=== PATIENT | male | born 1985 | race Caucasian/White ===

== ENCOUNTER 2020-05-26 10:30 | Outpatient (REF) | payer OTHER, SELFPAY ==
[2020-05-26 12:44] LABS: MANUAL DIFF FLAG NO
[2020-05-26 12:46] LABS: Basophils Percent Auto 0.2 % (0-2); Eosinophils Absolute Auto 0.2 X10*3/uL (0.0-0.4); Eosinophils Percent Auto 3.8 % (0-4); Hematocrit 48.2 % (42-52); Hemoglobin 16.5 g/dl (14.0-18.0); Imm Gran Abs Auto 0.01 X10*3/uL (0.00-0.03); Imm Gran Pct Auto 0.2 % (0.0-0.4); Lymphocytes Absolute Auto 1.8 X10*3/uL (1.2-4.9); Lymphocytes Percent Auto 29.6 % (20-40); Mean Corpuscular HGB Conc 34.2 g/dl (31.0-36.0); Mean Corpuscular Hemoglobin 30.3 pg (27.0-33.0); Mean Corpuscular Volume 88.6 fL (80-98); Mean Platelet Volume 9.8 fL (9.4-12.4); Monocytes Absolute Auto 0.3 X10*3/uL (0.1-1.2); Monocytes Percent Auto 5.6 % (2-11); Neutrophils Absolute Auto 3.7 X10*3/uL (2.0-8.3); Neutrophils Percent Auto 60.6 % (45-73); Platelet Count 214 X10*3/uL (160-400); Red Blood Count 5.44 X10*6/uL (4.60-5.80); Red Cell Distribution Width 12.6 % (11.0-16.0); White Blood Count 6.1 X10*3/uL (4.8-10.8)
[2020-05-26 13:17] LABS: Alanine Aminotransferase 85 U/L (0-40); Albumin Level 4.6 g/dL (3.5-5.0); Alkaline Phosphatase 66 U/L (39-117); Anion Gap 12 (12-20); Aspartate Amino Transferase 55 U/L (5-37); Bilirubin Total 0.7 mg/dL (0.0-1.0); Blood Urea Nitrogen 10 mg/dL (9-16); Calcium 9.5 mg/dL (8.4-10.2); Carbon Dioxide 27 mmol/L (22-29); Chloride 104 mmol/L (96-108); Cholesterol 278 mg/dL; Estimated Glomerular Filt Rate > 60; Glucose Fasting 100 mg/dL (60-99); HDL Cholesterol 36 mg/dL; LDL Cholesterol Calculated 200 mg/dl; Potassium 4.2 mmol/l (3.3-5.1); Sodium 139 mmol/L (135-145); Total Protein 7.2 g/dL (6.5-8.0); Triglycerides 212 mg/dL
== END 2020-05-26 10:31 | disposition home or self-care (01) ==
LOC: HO.MANLDS 10:30
PROVIDERS: PCP Internal Medicine; Visit Provider Internal Medicine
DX: Z00.00 Encounter for general adult medical examination without abnormal findings (principal)
CPT/HCPCS: 36415; 80053; 80061; 85025

== ENCOUNTER 2020-10-05 08:30 | Outpatient (REF) | payer OTHER, SELFPAY ==
[2020-10-05 12:17] LABS: Alanine Aminotransferase 64 U/L (0-40); Alkaline Phosphatase 74 U/L (39-117); Anion Gap 12 (12-20); Aspartate Amino Transferase 36 U/L (5-37); Bilirubin Total 0.8 mg/dL (0.0-1.0); Blood Urea Nitrogen 12 mg/dL (9-16); Calcium 9.9 mg/dL (8.4-10.2); Carbon Dioxide 27 mmol/L (22-29); Chloride 105 mmol/L (96-108); Cholesterol 205 mg/dL; Estimated Glomerular Filt Rate > 60; Glucose Fasting 99 mg/dL (60-99); HDL Cholesterol 35 mg/dL; LDL Cholesterol Calculated 136 mg/dl; Potassium 4.2 mmol/L (3.3-5.1); Sodium 140 mmol/L (135-145); Total Protein 7.5 g/dL (6.5-8.0); Triglycerides 172 mg/dL
== END 2020-10-05 08:31 | disposition home or self-care (01) ==
LOC: HO.MANLDS 08:30
PROVIDERS: PCP Internal Medicine; Visit Provider Internal Medicine
DX: E78.00 Pure hypercholesterolemia, unspecified (principal)
CPT/HCPCS: 36415; 80053; 80061

== ENCOUNTER 2022-04-01 16:03 | Outpatient (REF) | payer OTHER, SELFPAY ==
[2022-04-01 17:37] LABS: MANUAL DIFF FLAG NO
[2022-04-01 17:40] LABS: Eosinophils Absolute Auto 0.1 X10*3/uL (0.0-0.4); Eosinophils Percent Auto 1.6 % (0-4); Hematocrit 41.5 % (42.0-52.0); Hemoglobin 14.5 g/dl (14.0-18.0); Imm Gran Abs Auto 0.01 X10*3/uL (0.00-0.03); Imm Gran Pct Auto 0.1 % (0.0-0.4); Lymphocytes Percent Auto 26.2 % (20-40); Mean Corpuscular HGB Conc 34.9 g/dl (31.0-36.0); Mean Corpuscular Hemoglobin 30.9 pg (27.0-33.0); Mean Corpuscular Volume 88.3 fL (80.0-98.0); Mean Platelet Volume 9.9 fL (9.4-12.4); Monocytes Absolute Auto 0.4 X10*3/uL (0.1-1.2); Monocytes Percent Auto 5.6 % (2-11); Neutrophils Percent Auto 66.5 % (45-73); Platelet Count 201 X10*3/uL (160-400); Red Cell Distribution Width 12.7 % (11.0-16.0); White Blood Count 7.5 X10*3/uL (4.8-10.8)
[2022-04-01 17:58] LABS: Alanine Aminotransferase 56 U/L (0-40); Albumin Level 5.1 g/dL (3.5-5.0); Alkaline Phosphatase 71 U/L (39-117); Anion Gap 18 (12-20); Aspartate Amino Transferase 40 U/L (5-37); Bilirubin Total 1.2 mg/dL (0.0-1.0); Blood Urea Nitrogen 10 mg/dL (9-16); Calcium 9.8 mg/dL (8.4-10.2); Carbon Dioxide 25 mmol/L (22-29); Chloride 103 mmol/L (96-108); Cholesterol 212 mg/dL; Estimated Glomerular Filt Rate > 60; Glucose Random 80 mg/dL (60-115); HDL Cholesterol 36 mg/dL; LDL Cholesterol Calculated 151 mg/dl; Potassium 3.7 mmol/L (3.3-5.1); Sodium 142 mmol/L (135-145); Total Protein 7.5 g/dL (6.5-8.0); Triglycerides 127 mg/dL
== END 2022-04-01 16:04 | disposition home or self-care (01) ==
LOC: HO.MANLDS 16:03
PROVIDERS: Visit Provider Internal Medicine
DX: E78.00 Pure hypercholesterolemia, unspecified (principal)
CPT/HCPCS: 36415; 80053; 80061; 85025

== ENCOUNTER 2024-03-01 09:24 | Outpatient (REF) | payer OTHER, SELFPAY ==
[2024-03-01 09:27] LABS: MANUAL DIFF FLAG NO
[2024-03-01 13:47] LABS: Basophils Percent Auto 0.2 % (0-2); Eosinophils Absolute Auto 0.1 X10*3/uL (0.0-0.4); Eosinophils Percent Auto 2.7 % (0-4); Hematocrit 47.9 % (42.0-52.0); Hemoglobin 16.8 g/dl (14.0-18.0); Imm Gran Abs Auto 0.02 X10*3/uL (0.00-0.03); Imm Gran Pct Auto 0.4 % (0.0-0.4); Lymphocytes Absolute Auto 1.4 X10*3/uL (1.2-4.9); Mean Corpuscular HGB Conc 35.1 g/dl (31.0-36.0); Mean Corpuscular Hemoglobin 31.1 pg (27.0-33.0); Mean Corpuscular Volume 88.7 fL (80.0-98.0); Monocytes Absolute Auto 0.3 X10*3/uL (0.1-1.2); Monocytes Percent Auto 6.2 % (2-11); Neutrophils Absolute Auto 3.2 x10*3/uL (2.0-8.3); Neutrophils Percent Auto 62.5 % (45-73); Platelet Count 192 X10*3/uL (160-400); Red Cell Distribution Width 13.3 % (11.0-16.0); White Blood Count 5.2 X10*3/uL (4.8-10.8)
[2024-03-01 14:00] LABS: Alanine Aminotransferase 93 U/L (0-40); Albumin Level 4.6 g/dL (3.5-5.0); Alkaline Phosphatase 67 U/L (39-117); Anion Gap 12 (12-20); Aspartate Amino Transferase 64 U/L (5-37); Bilirubin Total 0.8 mg/dL (0.0-1.0); Blood Urea Nitrogen 10 mg/dL (9-16); Carbon Dioxide 25 mmol/L (22-29); Chloride 107 mmol/L (96-108); Cholesterol 269 mg/dL (<200); Estimated Glomerular Filt Rate > 60; Glucose Random 112 mg/dL (60-115); HDL Cholesterol 36 mg/dL (>40); LDL Cholesterol Calculated 193 mg/dL (<100); Sodium 140 mmol/L (135-145); Total Protein 7.4 g/dL (6.5-8.0); Triglycerides 200 mg/dL (<150)
== END 2024-03-01 09:25 | disposition home or self-care (01) ==
LOC: HO.MANLDS 09:24
PROVIDERS: Visit Provider Internal Medicine
DX: I10 Essential (primary) hypertension (principal); E78.00 Pure hypercholesterolemia, unspecified
CPT/HCPCS: 36415; 80053; 80061; 85025

== ENCOUNTER 2024-12-24 14:43 | Outpatient (REF) | payer OTHER, SELFPAY ==
--- OUTSIDE RECORDS SUMMARY | 2024-12-24 15:53 | XMS_ITS | Clinical Summary ---
Author Organization [facility], Address [address] [place] [address] Phone Care Team Providers Care Housekeeping Assistant Name Role Phone Evangelist Palafox DO Primary Care Provider [phone] Allergies Active Allergy Reactions Criticality Noted Date Comments Lisinopril Palpitations Low 11/05/2019 Medications atorvastatin (LIPITOR) 10 MG tablet atorvastatin 10 mg tablet TAKE 1 TABLET BY MOUTH EVERY DAY Active triamterene-hyd roCHLOROthiazid e (DYAZIDE) 37.5-25 MG per capsule Take by mouth 1 (one) time each day 3 Active Active Problems Problem Noted Date Diagnosed Date Pain in lower limb 09/12/2022 Overview (09/12/2022): BILATERAL LEGS SINCE 2018/ RADIATING PAIN Hypercholesterolemia 04/20/2022 Hypertension 04/20/2022 Low back pain 04/20/2022 Primary hypercholesterolemia 05/31/2020 History of neoplasm 02/12/2020 Leiomyoma 01/23/2020 Pain in left foot 11/05/2019 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 Social History Tobacco Use Types Packs/Day Years Used Date Smoking Tobacco: Never Assessed Sex and Gender Information Value Date Recorded Sex Assigned at Not on file Legal Sex Male 11:45 AM EST Gender Identity Not on file Sexual Orientation Not on file Last Filed Vital Signs Vital Sign Reading Time Taken Comments Blood Pressure 146/101 09/13/2022 10:56 AM EDT Pulse 84 09/13/2022 10:56 AM EDT Temperature 36.3 C (97.3 F) 09/13/2022 10:56 AM EDT Respiratory Rate - - Oxygen Saturation 98% 09/13/2022 10:56 AM EDT Inhaled Oxygen Concentration - - Weight 97.5 kg (215 lb) 09/13/2022 10:56 AM EDT Height 175.3 cm (5' 9 ) 09/13/2022 10:56 AM EDT Body Mass Index 31.75 09/13/2022 10:56 AM EDT Plan of Treatment Health Maintenance Due Date Last Done Comments Hepatitis B Vaccine (1 of 3 - 19+ 3-dose series) 2003 Influenza Vaccine (#1) 2025 Pneumococcal Vaccine: Peds ( 0 to 5 Years) and At-Risk Patients (6 to 49 Years) Aged Out No longer eligible b ased on patient's age to complete this topic [place] [address] Care Teams Housekeeping Assistant Relationship Specialty Start Date End Date Evangelist Palafox DO [address] [place] [id number] PCP - General Internal Medicine 04/20/22
--- OUTSIDE RECORDS SUMMARY | 2024-12-24 15:53 | XMS_ITS | Clinical Summary ---
Author Organization [facility] Address [address] [place] [phone] Phone Care Team Providers Care Teletypewriter Operator Name Role Phone Evangelist Palafox Primary Care Provider [phone] Allergies Active Allergy Reactions Criticality Noted Date Comments Lisinopril Palpitations Low 11/05/2019 Losartan Palpitations Low 01/17/2023 Medications losartan (COZAAR) 25 MG tablet Take 25 mg by mouth daily. Active amLODIPine (NORVASC) 10 MG tablet Take 10 mg by mouth daily. Active triamterene-hyd roCHLOROthiazid e (DYAZIDE) 37.5-25 mg per capsule Take 1 capsule by mouth daily. 08/05/2022 Active atorvastatin (LIPITOR) 10 MG tablet Take 10 mg by mouth daily. 10/05/2022 Active atenolol (TENORMIN) 50 mg tablet Take 1.5 tablets by mouth every morning. 12/26/2022 Active gabapentin (NEURONTIN) 300 MG capsule Take 300 mg by mouth 2 (two) times a day. Active sulindac (CLINORIL) 150 MG tablet Take 150 mg by mouth 2 (two) times a day with meals. Active meclizine (ANTIVERT) 25 mg tablet Take 1 tablet (25 mg total) by mouth 3 (three) times a day as needed for dizziness. 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 Essential hypertension 11/05/2019 Encounters Date Type Department Care Team Description 12/17/2024 3:30 PM EDT Office Visit [facility] [address] [place] [address] Evangelist Jackson PA-C Johndrow, Jennifer, PT Acute pain of left shoulder (Primary Dx) 12/12/2024 3:30 PM EDT Office Visit [facility] [address] [place] [address] Evangelist Jackson PA-C Johndrow, Jennifer, PT Acute pain of left shoulder (Primary Dx) 12/05/2024 3:15 PM EDT Office Visit [address] [place] [address] Evangelist Jackson PA-C Swannie, Ward, SPEECH THERAPIST EARLY INTERVENTION Acute pain of left shoulder (Primary Dx) 11/26/2024 3:30 PM EDT Office Visit [address] [place] [address] Evangelist Jackson PA-C Johndrow, Jennifer, PT Acute pain of left shoulder (Primary Dx) 11/22/2024 3:00 PM EDT Office Visit [address] [place] [address] Evangelist Jackson PA-C Johndrow, Jennifer, PT Acute pain of left shoulder (Primary Dx) 11/19/2024 3:30 PM EDT Office Visit [facility] [address] [place] [address] Evangelist Jackson PA-C Johndrow, Jennifer, PT Acute pain of left shoulder (Primary Dx) 11/15/2024 3:45 PM EDT Office Visit [facility] [address] [place] [address] Evangelist Jackson PA-C Johndrow, Jennifer, PT Acute pain of left shoulder (Primary Dx) 10/30/2024 3:00 PM EDT Office Visit [facility] [address] [place] [phone] Jonelle Olsen MD Bursitis and tendinitis of shoulder region (Primary Dx) 09/26/2024 11:00 AM EDT Office Visit [facility] Medicine [address] [place] [phone] Evangelist Jackson PA-C Brachial neuritis of left upper extremity (Primary Dx) from Last 3 Months Immunizations Immunization Administration Dates Next Due COVID-19 (Pre-03/27) Pfizer Vaccine, mRNA, PF 06/18/2021,09/05/2020,08/13/2020 Social History Tobacco Use Types Packs/Day Years Used Date Smoking Tobacco: Never Smokeless Tobacco: Never Alcohol Use Standard Drinks/Week Comments Never 0 (1 standard drink = 0.6 oz pur e alcohol) Education Answer Date Recorded Are you interested in more education? Not on lis e 09/30/2022 Are you concerned about learning? Not on file 09/30/2022 No 09/30/2022 No 09/30/2022 Digital Access Answer Date Recorded No 10/28/2022 No 10/28/2022 Reliable internet access at home? Not on file 10/28/2022 Device with a working camera? Not on file Intimate Partner Violence Answer Date R ecorded Are you denied basic needs s uch as food, clothing, or medical care? No 08/09/2023 In the past 12 months have y ou been in a relationship with a person who hurts, threatens, or tries to control you? No 08/09/2023 Are you denied basic needs s uch as food, clothing, or medical care? No 08/09/2023 In the past 12 months have y ou been in a relationship with a person who hurts, threatens, or tries to control you? No 08/09/2023 Sex and Gender Information Value Date Recorded Sex Assigned at Male 08/09/2023 11:02 AM EST Legal Sex Male 9:15 PM EDT Gender Identity Male 08/09/2023 11:02 AM EST Sexual Orientation Straight 08/09/2023 11 :02 AM EST Last Filed Vital Signs Vital Sign Reading Time Taken Comments Blood Pressure 128/81 08/09/2023 7:29 PM EST Pulse 82 08/09/2023 7:29 PM EST Temperature 36.8 C (98.2 F) 08/09/2023 7:29 PM EST Respiratory Rate 14 08/09/2023 7:29 PM EST Oxygen Saturation 94% 08/09/2023 7:29 PM EST Inhaled Oxygen Concentration - - Weight 98 kg (216 lb) 08/09/2023 10:55 AM EST Height 175.3 cm (5' 9 ) 08/09/2023 10:55 AM EST Body Mass Index 31.9 08/09/2023 10:55 AM EST Plan of Treatment Upcoming Encounters Date Type Department Care Team (Late st Contact Info) Description 12/24/2024 5:00 PM EDT Office Visit [address] [address] Evangelist Palafox, DO [address] [place] [phone] Jennifer Owen, PT [address] [place] [address] 12/31/2024 5:00 PM EDT Office Visit [facility] [address] [place] [address] Evangelist Palafox, DO [address] [place] [address] Jennifer Owen, PT [address] [place] [address] 01/15/2025 4:00 PM EDT Office Visit [facility] Medicine [address] [place] [address] Jonelle Olsen MD [address] [place] [address] Orthopedics & Sports Medicine, [place] [address] Health Maintenance Due Date Last Done Comments BLOOD PRESSURE 1984 DEPRESSION SCREENING 1996 HEPATITIS C SCREENING 2002 HIV ONE-TIME SCREENING (18-6 5 YEARS) 2002 COVID-19 VACCINE (2023-2 5 season) 2024 06/18/2021, 09/05/2020, 08/13/2020 CREATININE LEVEL 08/02/2025 08/02/2024, 05/21/2024, 08/09/2023 POTASSIUM LEVEL 08/02/2025 08/02/2024, 05/21/2024, 08/09/2023 SCREENING FOR DIABETES 08/02/2027 08/02/2024 LIPID PANEL 08/02/2029 08/02/2024 Adult Td,Tdap Booster 06/18/2031 06/18/2021 SMOKING STATUS SCREENING (On ce After 26 Yrs) Completed 10/30/2024 HEPATITIS A VACCINES Aged Out No long er eligible based on patient's age to complete this topic HIB VACCINES Aged Out No longer eligi ble based on patient's age to complete this topic MENINGOCOCCAL VACCINES (ACWY) Aged Out No longer eligible based on patient's age to complete this topic MENINGOCOCCAL VACCINES (B) Aged Out N o longer eligible based on patient's age to complete this topic PNEUMOCOCCAL VACCINES (0-49 years) Aged Out No longer eligible b ased on patient's age to complete this topic Medical Devices Implanted Type Area Chief Service Dispatcher Device Identifier Shelf Expiration Date Model / Serial / Lot Cage Cage Back Description:2 cages and scre ws Procedures Procedure Name Priority Date/Time Associated Diagnosis Comments AMB REFERRAL TO [facility] PHYSICAL THERAPY Routine 11/16/2024 2:26 PM EDT Brachial neuritis of left upper extremity LIPID PANEL Routine 08/02/2024 10:39 AM EST Pure hypercholesterolemia Nonspecific elevation of levels of transaminase or lactic acid dehydrogenase (LDH) COMPREHENSIVE METABOLIC PANEL Routine 08/02/2024 10:39 AM EST Pure hypercholesterolemia Nonspecific elevation of levels of transaminase or lactic acid dehydrogenase (LDH) from Last 3 Months or Most Recently Relevant to Health Maintenance Results * Ambulatory referral to [facility] Physical Therapy (11/16/2024 2:26 PM EDT) Other us Evangelist Jackson PA-C [facility]B [facility] REFERRALS Final Res ult * (ABNORMAL) Comprehensive metabolic panel (08/02/2024 10:39 AM EST) SODIUM 140 133 - 146 mmol/L [facility] POTASSIUM 4.3 3.3 - 5.1 mmol/L [facility] CHLORIDE 104 96 - 108 mmol/L [facility] CO2 25 21 - 35 mmol/L [facility] BUN 9 6 - 19 mg/dL [facility] CREATININE 1.10 0.5 - 1.5 mg/dL [facility] GLUCOSE 114(H) 70 - 99 mg/dL [facility] ALBUMIN 4.5 3.9 - 4.8 g/dL [facility] TOTAL PROTEIN 7.6 6.5 - 8.0 g/dL [facility] CALCIUM 9.7 8.4 - 10.3 mg/dL [facility] ALKALINE PHOSPHATASE 79 39 - 117 U/L [facility] TOTAL BILIRUBIN 0.6 0.0 - 1.2 mg/dL [facility] AST 52(H) 0 - 37 U/L [facility] ALT 60(H) 0 - 40 U/L [facility] GLOBULIN 3.1 1 - 4.8 g/dL [facility] EGFR 87 >59 mL/min/1.7 3m2 [facility] Comment:Estimated glomerular filtration rate calculated using the CKD-EPI refit equation. ANION GAP 15 10 - 20 mmol/L [facility] Blood 08/02/2024 10:3 9 AM EST 08/02/2024 10:42 AM EST us Evangelist Palafox DO LAB BLOOD ORDERABLES Final Resul t [facility] [address] [place] [address] * (ABNORMAL) Lipid panel (08/02/2024 10:39 AM EST) HDL 38 mg/dL [facility] Comment: Interpretation <40 mg/dL: Low HDL cholesterol (major risk factor for CHD) Greater than or equal to 60 mg/dL: High HDL cholesterol ( negative risk factor for CHD) HDL - cholesterol is affected by a number of factors, e.g. smoking, excerise, hormones, sex and age. CHOLESTEROL 263(H) 0 - 240 mg/dL [facility] TRIGLYCERIDES 131 30 - 160 mg/dL [facility] LDL 199(H) 50 - 129 mg/dL [facility] Comment: LDL levels in terms of risk for coronary heart disease: <100 mg/dL: Optimal 100-129 mg/dL: Near or above optimal 130-159 mg/dL: Borderline high 160-189 mg/dL: High >190 mg/dL: Very High CARDIAC RISK RATIO 6.9(H) 3.4 - 5.0 [facility] Blood 08/02/2024 10:3 9 AM EST 08/02/2024 10:42 AM EST us Evangelist Palafox DO LAB BLOOD ORDERABLES Final Resul t [facility] [address] [place] [address] from Last 3 Months or Most Recently Relevant to Health Maintenance Insurance [employer] [facility] [place] [id number] [employer] [employer] [place] [address] [place] [address] [place] [address] [place] [address] [employer] [employer]YE[employer] FAMILY Care Teams Teletypewriter Operator Relationship Specialty Start Date End Date Evangelist Palafox DO [email or web address] PCP - General Internal Medicine 08/10/18 Additional Source Comments The information contained in this document represents components of the legal health record. It is not the complete legal health record.[facility]
--- OUTSIDE RECORDS SUMMARY | 2024-12-24 15:54 | XMS_ITS | Data Portability ---
Author Organization [facility] Internal [facility], Telehealth Patient Home Address [address] [place] [address] Assessment Encounter Date Assessment Date Assessment LastModified by Organization Details LastModified Time 03/05/2024 03/05/2024 [id number] [place] [id number] ([employer]) MDM MODERATE MUST MEET 2 OUT OF 3 ELEMENTS: PROBLEMS, DATA OR RISK ELEMENT 1: PROBLEMS ADDRESSED 1 OR MORE CHRONIC ILLNESS WITH EXACERBATION OR 2 OR MORE STABLE CHRONIC ILLNESSES OR 1 UNDIAGNOSED NEW PROBLEM OR 1 ACUTE ILLNESS W/SYMPTOMS OR 1 ACUTE COMPLICATED INJURY ELEMENT 2: DATA MUST MEET 1 OF 3 CATEGORIES CATEGORY 1: REVIEW OF PRIOR EXTERNAL NOTES, REVIEW OF RESULTS, ORDERING OF EACH TEST, ASSESSMENT REQUIRING INDEPENDENT HISTORIAN OR CATEGORY 2: INDEPENDENT INTERPRETATION OF TESTS BY ANOTHER PHYSICIAN OR SPECIALIST OR CATEGORY 3: DISCUSSION OF MGT OR TEST INTERPRETATION W/EXTERNAL PHYSICIAN OR SPECIALIST ELEMENT 3: RISK RISK OF COMPLICATIONS AND/OR MORBIDITY OR MORTALITY OF PATIENT MANAGEMENT PROVIDER MUST THOROUGHLY DOCUMENT EACH ELEMENT THAT IS COVERED Not available 03/05/2024 15:50:44 05/31/2024 05/31/2024 [id number] [place] [id number] ([employer]) MDM MODERATE MUST MEET 2 OUT OF 3 ELEMENTS: PROBLEMS, DATA OR RISK ELEMENT 1: PROBLEMS ADDRESSED 1 OR MORE CHRONIC ILLNESS WITH EXACERBATION OR 2 OR MORE STABLE CHRONIC ILLNESSES OR 1 UNDIAGNOSED NEW PROBLEM OR 1 ACUTE ILLNESS W/SYMPTOMS OR 1 ACUTE COMPLICATED INJURY ELEMENT 2: DATA MUST MEET 1 OF 3 CATEGORIES CATEGORY 1: REVIEW OF PRIOR EXTERNAL NOTES, REVIEW OF RESULTS, ORDERING OF EACH TEST, ASSESSMENT REQUIRING INDEPENDENT HISTORIAN OR CATEGORY 2: INDEPENDENT INTERPRETATION OF TESTS BY ANOTHER PHYSICIAN OR SPECIALIST OR CATEGORY 3: DISCUSSION OF MGT OR TEST INTERPRETATION W/EXTERNAL PHYSICIAN OR SPECIALIST ELEMENT 3: RISK RISK OF COMPLICATIONS AND/OR MORBIDITY OR MORTALITY OF PATIENT MANAGEMENT PROVIDER MUST THOROUGHLY DOCUMENT EACH ELEMENT THAT IS COVERED Not available 05/31/2024 14:47:53 08/09/2024 08/09/2024 [id number] [place] [id number] ([employer]) MDM HIGH MUST MEET 2 OUT OF 3 ELEMENTS: PROBLEMS, DATA OR RISK ELEMENT 1: PROBLEMS 1 OR MORE CHRONIC ILLNESS W/SEVERE EXACERBATION, PROGRESSION MAY REQUIRE HOSPITAL LEVEL CARE OR 1 ACUTE OR CHRONIC ILLNESS OR INJURY THAT POSES A THREAT TO LIFE OR BODILY FUNCTION ELEMENT 2: DATA: MUST MEET 2 OF 3 CATEGORIES CATEGORY 1 REVIEW OF PRIOR EXTERNAL NOTES REVIEW OF THE RESULTS ORDERING OF EACH TEST ASSESSMENT REQUIRING INDEPENDENT HISTORIAN(S) CATEGORY 2: INDEPENDENT INTERPRETATION OF TESTS BY ANOTHER PROVIDER/SPECIALI ST CATEGORY 3: DISCUSSION OF MGT OR TEST INTERPRETATION W/EXTERNAL PHYSICIAN/SPECIAL IST ELEMENT 3: RISK HIGH RISK OF MORBIDITY FROM ADDITIONAL DIAGNOSTIC TESTING OR TREATMENT PROVIDER MUST THOROUGHLY DOCUMENT EACH ELEMENT THAT IS COVERED The patient presented to their appointment today for multiple concerns requiring moderate to high-level decision making and took over 40-45 minutes for an adequate and appropriate history, exam, assessment and treatment plan. This appointment was done with an established patient. Not available 08/09/2024 11:46:55 08/30/2024 08/30/2024 has not been called yet for the ct [place] [id number] [place] [id number] (POLICE LIE[employer]NT PATROL) [facility] HIGH MUST MEET 2 OUT OF 3 ELEMENTS: PROBLEMS, DATA OR RISK ELEMENT 1: PROBLEMS 1 OR MORE CHRONIC ILLNESS W/SEVERE EXACERBATION, PROGRESSION MAY REQUIRE HOSPITAL LEVEL CARE OR 1 ACUTE OR CHRONIC ILLNESS OR INJURY THAT POSES A THREAT TO LIFE OR BODILY FUNCTION ELEMENT 2: DATA: MUST MEET 2 OF 3 CATEGORIES CATEGORY 1 REVIEW OF PRIOR EXTERNAL NOTES REVIEW OF THE RESULTS ORDERING OF EACH TEST ASSESSMENT REQUIRING INDEPENDENT HISTORIAN(S) CATEGORY 2: INDEPENDENT INTERPRETATION OF TESTS BY ANOTHER PROVIDER/SPECIALI ST CATEGORY 3: DISCUSSION OF MGT OR TEST INTERPRETATION W/EXTERNAL PHYSICIAN/SPECIAL IST ELEMENT 3: RISK HIGH RISK OF MORBIDITY FROM ADDITIONAL DIAGNOSTIC TESTING OR TREATMENT PROVIDER MUST THOROUGHLY DOCUMENT EACH ELEMENT THAT IS COVERED The patient presented to their appointment today for multiple concerns requiring moderate to high-level decision making and took over 40-45 minutes for an adequate and appropriate history, exam, assessment and treatment plan. This appointment was done with an established patient. Not available 08/30/2024 10:25:34 11/29/2024 11/29/2024 [id number] [place] [id number] (POLICE LIE[employer]NT PATROL) [facility] HIGH MUST MEET 2 OUT OF 3 ELEMENTS: PROBLEMS, DATA OR RISK ELEMENT 1: PROBLEMS 1 OR MORE CHRONIC ILLNESS W/SEVERE EXACERBATION, PROGRESSION MAY REQUIRE HOSPITAL LEVEL CARE OR 1 ACUTE OR CHRONIC ILLNESS OR INJURY THAT POSES A THREAT TO LIFE OR BODILY FUNCTION ELEMENT 2: DATA: MUST MEET 2 OF 3 CATEGORIES CATEGORY 1 REVIEW OF PRIOR EXTERNAL NOTES REVIEW OF THE RESULTS ORDERING OF EACH TEST ASSESSMENT REQUIRING INDEPENDENT HISTORIAN(S) CATEGORY 2: INDEPENDENT INTERPRETATION OF TESTS BY ANOTHER PROVIDER/SPECIALI ST CATEGORY 3: DISCUSSION OF MGT OR TEST INTERPRETATION W/EXTERNAL PHYSICIAN/SPECIAL IST ELEMENT 3: RISK HIGH RISK OF MORBIDITY FROM ADDITIONAL DIAGNOSTIC TESTING OR TREATMENT PROVIDER MUST THOROUGHLY DOCUMENT EACH ELEMENT THAT IS COVERED The patient presented to their appointment today for multiple concerns requiring moderate to high-level decision making and took over 40-45 minutes for an adequate and appropriate history, exam, assessment and treatment plan. This appointment was done with an established patient. Not available 11/29/2024 10:45:42 Plan of Treatment Reminders Order Date Submit Date Provider Last Modified By Organization Details Last Modified Time Details Appointments None recorded. Lab magnesium, serum or plasma 2024 025 [facility], [address] [place] [address], [address], 5 10:45:13 CK (creatine kinase), total, serum 2024 025 [facility], [address] [place] [address], [address], 5 10:45:13 vitamin B12 + folate, serum or blood 2024 025 [facility], [address] [place] [address], [address], 5 10:45:13 vitamin D, 25-hydroxy , total, serum 2024 025 [facility], [address] [place] [address], [address], 5 10:45:13 lipid panel, serum 2023 024 [facility], [address] [place] [address], [address], 5 17:12:49 lipid panel, serum 2024 025 [facility], [address] [place] [address], [address], 5 17:12:49 CMP, serum or plasma 2023 024 [facility], [address] [place] [address], [address], 5 17:03:15 CMP, serum or plasma 2024 025 [facility], [address] [place] [address], [address], 5 17:03:14 CMP, serum or plasma 2023 024 [facility], [address] [place] [address], [place], [address], 4 23:39:12 Referral aquatic biologist referral 2023 024 [facility] Onel Gama [facility] [address] [place] [address], [address], [place], [address], 4 08:22:50 Procedures None recorded. Surgeries None recorded. Imaging exercise stress test 2024 025 [facility], [address] [place], [address], 5 09:09:14 XR, shoulder, 2 or more view 2024 025 [facility], [address], [place], [address], 5 23:59:03 CT, coronary calcium score [address] [facility], [address] [place], [address], 5 18:22:57 Medication Orders nitroglyce rin 0.4 mg sublingual tablet 2024 025 [id number], [address], [place], [id number], 5 10:41:04 rosuvastat in 10 mg tablet 2024 025 [facility] #[id number], [address], [place], [id number], 11:49:31 atenolol 100 mg tablet 2024 025 [facility] [employer] [facility][id number], [address], [place], [id number], 11:49:18 Patient TargetsNo targets recorded. 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 [facility] [address] [facility] [address], [place], [address], 08/15/2024 21:32:40 09/21/1909/20/2024 CT, coron harshil calci um score No observ ation record ed. Not Available 2024 10:03:24 Result Notes None recorded. Problems Name Problem SNOMED Code Status Onset Date Resolution Date Notes Provider Name and Address Organization Details Recorded Time Primary lumbar discectom y Active Evangelist Palafox, DO [address] [facility], [place], [address], [facility] 4 15:48:08 Hypertens mary disorder 55796085 Active 2019 Evangelist Palafox DO [address] [place] [address], [address], [facility] 0 15:55:22 Leiomyoma 634854193247 103 Active 2019 left foot Evangelist Palafox DO [address] [place] [address], , [facility] 0 21:59:10 Primary hyperchol esterolem ia 005609580 Active 2019 Evangelist Palafox DO [address] [place] [address], , [facility] 0 21:58:13 COVID-19 324637691 Active 2021 Evangelist Palafox DO [address] [place] [address], [address], [facility] 2 14:41:44 Lumbar spinal fusion Active 2022 L5 S1 Evangelist Palafox DO [address] [place] [address], , [facility] 4 15:48:46 Candidias is of mouth 44380475 Active 2023 Evangelist Palafox DO [address] [place] [address], , [facility] 4 14:49:25 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 179264306900 68279 Active 2023 Evangelist Palafox DO [address] [place] [address], , [facility] 4 16:32:43 Plantar fascial fibromato sis 26418092 Active 2023 Evangelist Palafox DO [address] [place] [address], [address], [facility] 4 15:54:06 Liver enzymes level above reference range 745399448 Active 2023 Evangelist Palafox, DO [address] [place] [address], [address], [facility] 4 14:55:49 Pain of left shoulder joint 628120232133 54541 Active 2024 Evangelist Palafox, DO [address] [place] [address], [address], [facility] 5 11:43:06 Rupture of rotator cuff of left shoulder 454569043042 70705 Active 2024 Evangelist Palafox, DO [address] [place] [address], [address], [facility] 5 21:33:08 Chest pain on exertion 92481248 Active 2024 Evangelist Palafox [address] [place] [address], [address], [facility] 5 10:39:21 Cramp in lower limb 184882525 Active 2024 Evangelist Palafox, DO [address] [place] [address], [address], [facility] 5 10:42:57 Problem Notes None recorded. Medical Equipment None Reported. Allergies Allergen ID Allergen Name Allergen Category Reaction Reaction Severity Criticality Documentation Date Start Date Code Code System Note Provider Name and Address Organization Details Recorded Time 3813 lisinopri l medicatio n palpitati ons Not available Not available 09/20/2019 47279 RxNorm September Osiris, [facility] [address] [place], [address], [facility] 0 10:39:24 Medications Name Sig Start Date Stop Date Status Note LastModified by Organization Details LastModified Time cyclobenzap rine 10 mg tablet Take 1 tablet 3 times a day by oral route as needed for 15 days. 09/19 completed Not Available Not Available Not Available amoxicillin 500 mg capsule TAKE 1 CAPSULE BY MOUTH THREE TIMES DAILY UNTIL GONE 03/05 completed Not Available Not Available Not Available nystatin 100,000 unit/mL oral suspension SHAKE LIQUID AND TAKE 5 ML BY MOUTH FOUR TIMES DAILY FOR 7 DAYS 08/09 completed Not Available Not Available Not Available prednisone 10 mg tablet 4 tabs x 3 days3 tabs x 3 days2 tabs x 3 days1 tab x 3 days 11/29 completed Not Available Not Available Not Available clindamycin HCl 300 mg capsule 03/05 completed Not Available Not Available Not Available atorvastati n 10 mg tablet TAKE 1 TABLET BY MOUTH EVERY DAY 05/31 completed Not Available Not Available Not Available azithromyci n 250 mg tablet TAKE 2 TABLETS BY MOUTH ON DAY 1 THEN 1 TABLET BY MOUTH EVERY DAY FOR 4 DAYS 04/01 completed Not Available Not Available Not Available atenolol 100 mg tablet TAKE 1 TABLET BY MOUTH EVERY DAY active Not Available Not Available No t Available hydrocodone 5 mg-acetamin ophen 325 mg tablet TAKE 1 TABLET BY MOUTH EVERY 6 HOURS NEEDED FOR PAIN 05/26 completed Not Available Not Available Not Available meloxicam 15 mg tablet TAKE 1 TABLET BY MOUTH EVERY DAY FOR 30 DAYS 08/09 completed Not Available Not Available Not Available prednisone 20 mg tablet 3 tabs X 3 days, 2 tabs X 3 days, 1 tab X 3 days 09/19 completed Not Available Not Available Not Available prednisone 5 mg tablet 03/05 completed Not Available Not Available Not Available sulindac 150 mg tablet TAKE 1 TABLET BY MOUTH TWICE A DAY 08/09 completed Not Available Not Available Not Available amlodipine 5 mg tablet TAKE 1 TABLET BY MOUTH EVERY DAY 08/02 completed Not Available Not Available Not Available ciprofloxac in 500 mg tablet 03/05 completed Not Available Not Available Not Available tramadol 50 mg tablet TAKE 1 TABLET BY MOUTH EVERY 8 HOURS FOR 7 DAYS 09/01 completed Not Available Not Available Not Available triamterene 37.5 mg-hydrochl orothiazide 25 mg capsule TAKE 1 CAPSULE BY MOUTH EVERY DAY 2024 active Not Available Not Available Not Avai lable cefadroxil 500 mg capsule 08/09 completed Not Available Not Available Not Available lorazepam 0.5 mg tablet TAKE 1-2 TABLETS BY MOUTH PRIOR TO PROCEDURE 04/01 completed Not Available Not Available Not Available meclizine 25 mg tablet 08/09 completed Not Available Not Available Not Available amlodipine 10 mg tablet TAKE 1 TABLET BY MOUTH EVERY DAY 08/05 completed Not Available Not Available Not Available lisinopril 10 mg tablet Take 1 tablet every day by oral route for 30 days. 09/19 completed Not Available Not Available Not Available losartan 25 mg tablet TAKE 1 TABLET BY MOUTH EVERY DAY active Not Available Not Available No t Available ibuprofen 200 mg tablet OTC; Up to 3 tablets at a time PRN for back pain 04/01 completed Not Available Not Available Not Available nitroglycer in 0.4 mg sublingual tablet DISSOLVE 1 TABLET UNDER THE TONGUE NEEDED FOR CHEST PAIN active Not Available Not Available No t Available gabapentin 300 mg capsule TAKE 1 CAPSULE BY MOUTH TWICE A DAY 08/09 completed Not Available Not Available Not Available lisinopril 5 mg tablet Take 1 tablet by oral route for 30 days. 07/27 completed Not Available Not Available Not Available methylpredn isolone 4 mg tablets in a dose pack FOLLOW PACKAGE DIRECTION S 04/01 completed Not Available Not Available Not Available atenolol 50 mg tablet TAKE 1 AND 1/2 TABLETS BY MOUTH EVERY DAY 08/09 completed Not Available Not Available Not Available oxycodone 5 mg tablet TAKE 1 TABLET BY MOUTH EVERY 6 HOURS NEEDED FOR MODERATE PAIN 08/09 completed Not Available Not Available Not Available rosuvastati n 10 mg tablet TAKE 1 TABLET BY MOUTH EVERY DAY active Not Available Not Available No t Available pregabalin 75 mg capsule TAKE 1 CAPSULE BY MOUTH TWICE A DAY FOR 30 DAYS 08/09 completed Not Available Not Available Not Available Vitals Date Recorded Body height Body mass index (BMI) Body weight Heart rate Oxygen saturation Oxygen saturation in Arterial blood by Pulse oximetry Systolic And Diastolic Provider Name and Address Organization Details Last Updated DateTime 5 175.26 cm 31.7 kg/m2 66378.9 2 g 90 /min 97 % 97 % 138/88 mm[Hg] Genoveva Ortega [facility] 5 11:27:07 Date Recorded Body height Body mass index (BMI) Body weight Heart rate Oxygen saturation Oxygen saturation in Arterial blood by Pulse oximetry Systolic And Diastolic Provider Name and Address Organization Details Last Updated DateTime 5 175.26 cm 31.6 kg/m2 23767.8 4 g 84 /min 97 % 97 % 120/80 mm[Hg] Genoveva Fernandez [facility] 5 10:00:58 Date Recorded Body height Body mass index (BMI) Body weight Heart rate Oxygen saturation Oxygen saturation in Arterial blood by Pulse oximetry Systolic And Diastolic Provider Name and Address Organization Details Last Updated DateTime 5 175.26 cm 31.6 kg/m2 82213.7 7 g 84 /min 97 % 97 % 120/70 mm[Hg] Roxanna Toro [facility] 5 10:21:06 Date Recorded Body height Body mass index (BMI) Body weight Heart rate Oxygen saturation Oxygen saturation in Arterial blood by Pulse oximetry Systolic And Diastolic Provider Name and Address Organization Details Last Updated DateTime 4 175.26 cm 30.7 kg/m2 11493.2 1 g 92 /min 97 % 97 % 130/80 mm[Hg] Roxanna Toro [facility] 4 15:34:33 Social History Question Answer Notes LastModified by Organizat ion Details LastModified Time Tobacco Smoking Status Never Smoker Not Available [facility] 04[facility]07/2020 03:36:24 What Was The Date Of Your Most Recent Tobacco Screening? 11/29/2024 [email or web address] Information not available 11/29/2024 Sex: Unknown Functional Status Question Answer Note LastModified by Organization D etails LastModified Time Do you or have you ever used any other forms of tobacco or nicotine? No Information not available 04/01/2022 Mental Status None recorded. Family History Nothing Reported. Medical History No medical history recorded. Immunizations Vaccine Type Date Status Note Provider Nam e and Address Organization Details Recorded Time COVID-19, mRNA, LNP-S, PF, 30 mcg/0.3 mL dose 06/18/2021 completed Spring martinez [facility] 09/01/2021 15:54:46 Tdap 06/18/2021 completed Spring martinez [facility] 09/01/2021 15:55:01 COVID-19, mRNA, LNP-S, PF, 30 mcg/0.3 mL dose 08/13/2020 completed Chelsi martinez [facility] 10/13/2020 11:16:02 COVID-19, mRNA, LNP-S, PF, 30 mcg/0.3 mL dose 09/05/2020 completed Chelsi martinez, [facility] 10/13/2020 11:16:07 Past Encounters Encounter ID Performer Location Encounter Start Date Encounter Closed Date Diagnosis/Indication Diagnosis SNOMED-CT Code Diagnosis ICD10 Code Diagnosis Note [id number] Evangelist Palafox [facility] [address] [place] [address],[place] [address] 07/27/2018 13:59:48 07/27/2018 15:14:02 Left side sciatica 7424364050 82111 M54.32 Body mass index 30+ - obesity 628198803 Z68.31 [id number] Evangelist Palafox [facility] [address],[place] [address] 08/08/2018 14:49:17 08/08/2018 15:56:47 Left side sciatica 8524073160 31775 M54.32 [id number] Evangelist Palafox [address],[place] [address] 07/19/2019 13:26:43 07/19/2019 15:06:14 Left side sciatica 2978213192 09132 M54.32 acute on chronic Ganglion c yst of left foot 5237765601 280633 M67.472 Pain of sh oulder region 62825664 M25.519 re-eval if needed after back regimen started Essential hypertension 76443239 I10 elevated, start lisin fu 2 monts [id number] Evangelist Palafox [facility] [address],[place] [address] 09/20/2019 10:05:46 09/20/2019 11:25:15 Essential hypertension 42803657 I10 continue lifestyle changes [id number] Evangelist Palafox [facility] [address] [facility],[place] [address] 01/01/2020 14:58:05 01/01/2020 16:37:35 Pre-surgery evaluation 381593497 Z01.818 Per the 2017 ACC risk stratifica tion (revised) this patient is deemed a low risk and is CLEARED for surgery proposed. NO further work up is warranted. the patient is instructed to take his bp medication on the day of surgery. [id number] Evangelist Palafox [facility] [address] [facility],[place] [facility] [place] [address] 05/26/2020 09:55:18 05/26/2020 10:46:42 Active or passive immunization 862377625 Z23 Adult heal th examination 706521601 Z00.00 doing well willneed fbw Hypertensive disorder 38 721850 I10 he certainly needs to get this dealt with given his family hx i recc we treat will start with lisinopril [id number] Evangelist Palafox [facility] [address] [facility],[place] [address] 07/29/2020 13:22:35 07/29/2020 15:06:09 Hypertensive disorder 67778418 I10 taking the amlodipine without issues and this is working on a low dose doing well encouraged to try to monitor at home Primary hypercholesterolemia 412901206 E78.00 we are =going to chk the levels in september to see how statin is working [id number] Evangelist Palafox [facility] [address] [facility],[place] [address] 11/17/2020 14:54:33 11/17/2020 15:15:14 Hypertensive disorder 59488903 I10 taking the amlodipine without issues and this is working on a low dose doing well encouraged to try to monitor at home Primary hypercholesterolemia 150730929 E78.00 doing well with meds atorvastat 10mg arsenio LDL is only 130 HDL is 35 we will cont to monitor [id number] Evangelist Palafox [facility] [address] [facility],[place] [address] 05/19/2021 08:30:43 05/19/2021 16:22:11 Hypertensive disorder 35200258 I10 taking the amlodipine without issues and this is working on a low dose doing well encouraged to try to monitor at home Primary hypercholesterolemia 730584399 E78.00 doing well with meds atorvastat 10mg arsenio LDL is only 130 HDL is 35 we will cont to monitor [id number] Evangelist Palafox [facility] [address] [facility] [address],[place] [address] 07/21/2021 15:03:05 07/23/2021 08:32:38 Lumbar radiculopathy 887503459 M54.16 will start with work [facility] treat for acute on chronic low back pain [id number] Evangelist Palafox [facility] [address] [facility] [address],[place] [address] 09/01/2021 15:17:05 09/01/2021 16:49:12 Hypertensive disorder 34830391 I10 taking the amlodipine without issues and this is working on a low dose doing well encouraged to try to monitor at home [id number] Evangelist Palafox [facility] [address] [facility] [address],[place] [address] 04/01/2022 15:13:01 04/01/2022 16:27:54 Primary hypercholesterolemia 359346582 E78.00 doing well with meds atorvastat 10mg arsenio LDL is only 130 HDL is 35 we will cont to monitor Hypertensive disorder 38 081198 I10 will chk bp at home and record and bring in next appt in ng well encouraged to try to monitor at homeno chnge with meds now [id number] Evangelist Palafox [facility] [address] [facility] [address],[place] [address] 08/05/2022 15:27:10 08/08/2022 10:03:17 Hypertensive disorder 07878503 I10 still running borderline even with amlodipine we will stop and start dyazide Primary hypercholesterolemia 555333351 E78.00 doing well with meds atorvastat 10mg arsenio LDL is only 130 HDL is 35 we will cont to monitor [id number] Evangelist Palafox [facility] [address] [facility] [address] [address] 10/03/2022 11:52:40 10/03/2022 16:02:08 Hypertensive disorder [id number] I10 still running borderline even with amlodipine we will stop and start dyazide Primary hypercholesterolemia [id number] E78.00 doing well with meds atorvastat 10mg arsenio LDL is only 130 HDL is 35 we will cont to monitor [id number] Evangelist Palafox [facility] [address] [facility] [address] [place] [address] [place] [facility] [place] [address] 11/02/2022 14:56:14 11/02/2022 15:34:22 Hypertensive disorder 80115043 I10 doing ok with atenolol hasnt bothered [id number] Evangelist Palafox [facility] [address] [facility] [address] [address] 12/26/2022 15:17:57 12/26/2022 16:11:10 Hypertensive disorder [id number] I10 doing ok with atenolol hasnt bothered Primary hypercholesterolemia 696218031 E78.00 doing well with meds atorvastat 10mg arsenio LDL is only 130 HDL is 35 we will cont to monitor [id number] Evangelist Palafox [facility] [address] [facility] [address] [address] [place] [address] 03/24/2023 15:24:21 03/24/2023 16:43:34 Hypertensive disorder [id number] I10 doing ok with atenolol hasnt bothered History of lumbar fusion [id number] 9106 Z98.1 [id number] Evangelist KurtCamille Palafox [facility] [address] [facility] [address] [address] 11/21/2023 16:09:46 11/22/2023 08:48:32 Hypertensive disorder 82962323 I10 doing ok with atenolol hasnt bothered Primary hypercholesterolemia 848492358 E78.00 doing well with meds atorvastat 10mg arsenio LDL is only 130 HDL is 35 we will cont to monitor Depression screening 171 137175 Z13.31 SCREENING NEGATIVE Fibromatos is of plantar fascia of left foot [id number] M72.2 [id number] Evangelist Palafox [facility] [address] [facility] [address] [place] [address] [facility] [address] 03/05/2024 15:23:03 03/05/2024 16:00:51 Hypertensive disorder [id number] I10 doing ok with atenolol hasnt bothered Primary hypercholesterolemia 694401153 E78.00 doing well 10mg atorvastat LDL is lful468 HDL is 35 we will cont to monitorBUT his LFTS are elevated so he must stop the atorvastat rechk lft in 2 months if normal we ill start him on rosuvastat in Plantar fa scial fibromatosis [id number] M72.2 [id number] Evangelist Palafox [facility] [address] [facility] [address] [place], [place] [address] 05/31/2024 08:57:17 05/31/2024 15:15:14 Essential hypertension 14326695 I10 will start checking the bp at kanoshhasnot checked since appt Liver enzy mes level above reference range 800208599 R74.01 prob combo of hepatic steatosis and atorvastat in we will cont to hold atorvastat and order repeat lab in august if still up will need liver US Primary hypercholesterolemia 261788483 E78.00 will rechk levels in august now off atorvastat [id number] Evangelist Palafox [facility] [address] [facility] [address] [place], [address] [facility] [place] [address] 08/09/2024 11:17:03 08/09/2024 13:28:18 Hypertensive disorder 86457394 I10 doing ok with atenolol hasnt bothered but bp is still elevated Primary hypercholesterolemia 074896195 E78.00 h now off atorvastat but levels are high will trial rosuvastat in Liver enzy mes level above reference range 840281752 R74.01 prob combo of hepatic steatosis and atorvastat in has held atorastati n and liver has come down but still sl elevated but the LDL is up to 200 erick try rosuvastat Depression screening 171 783014 Z13.31 SCREENING NEGATIVE Pain of le ft shoulder joint [id number] M25.512 will need mri but will first get an xr [id number] Evangelist Palafox DO [facility] [address] [facility] [address] [address] 08/30/2024 09:54:05 08/30/2024 10:54:51 Hypertensive disorder 10999330 I10 doing ok with atenolol hasnt bothered but bp is still elevated Primary hypercholesterolemia 494765257 E78.00 h now off atorvastat but levels are high will trial rosuvastat in Depression screening 171 498262 Z13.31 SCREENING NEGATIVE Liver enzy mes level above reference range 224892198 R74.01 prob combo of hepatic steatosis and atorvastat in has held atorastati n and liver has come down but still sl elevated but the LDL is up to 200 erick try rosuvastat Rupture of rotator cuff of left shoulder [id number] 1700396 M75.102 still hasnt gotten a call from the hospital will re order [id number] Evangelist Palafox [facility] [address] [facility] [address] [address] [address] 11/29/2024 10:04:39 11/29/2024 10:49:53 Hypertensive disorder 21231905 I10 doing ok with atenolol hasnt bothered but bp is still elevated Depression screening 171 932203 Z13.31 SCREENING NEGATIVE Chest pain on exertion 73083725 R07.9 very specific but has had a nl ct heart will need ett given fam hx Cramp in lower limb 4499 06562 G47.62 severe will need lab Health Concerns Section Related Observation LastModified by Organization Detai ls LastModified Time None Recorded Concern Status LastModified by Organization Details LastModified Time None Recorded Advance Directives Directive None Recorded Payers Insurance Date Sequence Insurance Name Policy Number Policy Garrett Covered Member ID Garrett Member ID Guarantor Name 03/05/2024 1 [facility] [employer] [facility] (O) Alvin Albert [id number] Alvin Albert 03/05/2024 1 [employer] [id number] Alvin Albert [id number] Alvin Albert 03/05/2024 2 [place] [facility] Alvin Albert [id number] Alvin Albert 11/26/2024 1 [facility] (O) Alvin Thomas Bety [id number] Alvin Albert Notes Date Note Type Note Provider Name and Address Organization Details Recorded Time 03/05/20 text/htm l here for rechkj and is doing ok overallno cp no sobworking hard has no restrictions now for his backhas had a L5 S1 lumbar fusion followed by a L4-5 microdiscectomy Evangelist Palafox DO [address] [place] [address], [phone], [facility] 03/05/2024 15:55:42 05/31/20 text/htm l Care Management - HypertensionReported bypatient.Self Care:not under emotional stress Severity:symptoms are improving; does not interfere with daily activities Associated Symptoms:no dizziness; no lightheadedness; no chest pain; no shortness of breath; no palpitations; no edema; no calf muscle cramps; no blurred vision; no confusion; no headaches; no fatigue patient is evaluated via tele/video assessment per patient consent during current pandemic Evangelist Palafox DO [address] [place], [address], [facility] 05/31/2024 15:00:24 08/10/19 text/htm l Care Management - HypertensionReported bypatient.Self Care:not under emotional stress Severity:symptoms are improving; does not interfere with daily activities Associated Symptoms:no dizziness; no lightheadedness; no chest pain; no shortness of breath; no palpitations; no edema; no calf muscle cramps; no blurred vision; no confusion; no headaches; no fatigue here for bp chk relates that bp running 150;s /80-90some as high as 170/106 Evangelist Palafox DO [address] [place], [address], [facility] 08/09/2024 11:49:40 08/31/19 text/htm l Care Management - DiabetesReported bypatient.Notes:here as noted and doing ok overallCare Management - HyperlipidemiaReported bypatient.Control:usually well controlled; improving; at goal Complications:no coronary artery disease; no heart attack; no cardiovascular disease; no pancreatitis; no strokeCare Management - HypertensionReported bypatient.Self Care:not under emotional stress Severity:symptoms are improving; does not interfere with daily activities Associated Symptoms:no dizziness; no lightheadedness; no chest pain; no shortness of breath; no palpitations; no edema; no calf muscle cramps; no blurred vision; no confusion; no headaches; no fatigue here for rechk of bp and to go over the testsdoing well with his atenolol Evangelist Palafox DO [address] [place] [address], [phone], [facility] 08/30/2024 10:27:52 11/30/19 25 text/htm l Care Management - HypertensionReported bypatient.Self Care:not under emotional stress Severity:symptoms are improving; does not interfere with daily activities Associated Symptoms:no dizziness; no lightheadedness; no chest pain; no shortness of breath; no palpitations; no edema; no calf muscle cramps; no blurred vision; no confusion; no headaches; no fatigue has been having a lot of leg crampinggetting bad worse at nightrelates when he exerts he feels a pain going up into his upper chest and jawif he stops what he is doing the pain gradually goes away after several minutes Evangelist Palafox DO [address] [place] [address], [phone], [facility] 11/29/2024 10:46:14
[2024-12-24 18:38] LABS: Magnesium 2.2 mg/dL (1.6-2.6)
[2024-12-24 18:58] LABS: Folate 4.1 ng/mL (> or = 4.0); Vitamin B12 465 pg/mL (200-900)
== END 2024-12-24 14:44 | disposition home or self-care (01) ==
LOC: HO.MANLDS 14:43
PROVIDERS: Visit Provider Internal Medicine
DX: G47.62 Sleep related leg cramps (principal)
CPT/HCPCS: 36415; 82306; 82550; 82607; 82746; 83735